=== PATIENT | female | born 1990 | race Caucasian/White ===

== ENCOUNTER 2019-12-14 09:02 | Emergency (ER) | payer OTHER ==
[~2019-12-14] VITALS: Ht 152.4 cm; Wt 66.2 kg
[2019-12-14] MEDS ORDERED: DIALYVITE 800-1 EACH PO (09:18)
[2019-12-14] MEDS ORDERED: PRENATABS RX T1 EACH PO (09:18)
[2019-12-14] MEDS ORDERED: VITAMIN D32000 UNI2 PO (09:19)
== END 2019-12-14 14:33 | disposition home or self-care (01) ==
LOC: ER 09:02
DX: O20.0 Threatened abortion (principal)

== ENCOUNTER → 2020-01-15 | Outpatient (CLI) | payer OTHER ==
[~2020-01-15] MED LIST: DIALYVITE 800-1 EACH PO; PRENATABS RX T1 EACH PO; VITAMIN D32000 UNI2 PO
== END | disposition home or self-care (01) ==
LOC: PRENATAL 09:00
DX: O99.89 Other specified diseases and conditions complicating pregnancy, childbirth and the puerperium (principal); O35.3XX1 Maternal care for (suspected) damage to fetus from viral disease in mother, fetus 1; O28.1 Abnormal biochemical finding on antenatal screening of mother

== ENCOUNTER → 2020-03-18 | Outpatient (CLI) | payer OTHER | END | disposition home or self-care (01) | LOC: PRENATAL 08:29 | PROVIDERS: ATTEND Obstetrics & Gynecology | DX: O26.843 Uterine size-date discrepancy, third trimester (principal); O28.1 Abnormal biochemical finding on antenatal screening of mother; O99.89 Other specified diseases and conditions complicating pregnancy, childbirth and the puerperium ==

== ENCOUNTER → 2020-04-29 | Outpatient (CLI) | payer OTHER | END | disposition home or self-care (01) | LOC: PRENATAL 08:00 | PROVIDERS: ATTEND Obstetrics & Gynecology | DX: O26.843 Uterine size-date discrepancy, third trimester (principal); O28.1 Abnormal biochemical finding on antenatal screening of mother; O99.89 Other specified diseases and conditions complicating pregnancy, childbirth and the puerperium; O35.0XX1 Maternal care for (suspected) central nervous system malformation in fetus, fetus 1 ==

== ENCOUNTER 2020-05-05 10:15 | Inpatient (IN) | payer OTHER ==
[~2020-05-05] VITALS: Ht 154.9 cm; Wt 73.9 kg
== END 2020-06-03 14:10 | disposition home or self-care (01) | DRG 788 ==
LOC: O/R 05-31 03:35 → OB/GYN 05-31 03:35 → LDR 05-31 03:35 → O/R 05-31 13:37 → OB/GYN 05-31 16:44 → LDR 06-02 10:15 → OB/GYN 06-03 14:10
PROVIDERS: ADMIT Obstetrics & Gynecology; ATTEND Obstetrics & Gynecology
PROC: 3E0P7VZ Introduction of Hormone into Female Reproductive, Via Natural or Artificial Opening (ICD-10-PCS; 2020-05-31)
PROC: 4A1HXCZ Monitoring of Products of Conception, Cardiac Rate, External Approach (ICD-10-PCS; 2020-05-31)
PROC: 10D00Z1 Extraction of Products of Conception, Low, Open Approach (ICD-10-PCS; principal; 2020-05-31 13:15)
DX: O65.8 Obstructed labor due to other maternal pelvic abnormalities (principal); Z20.828 Contact with and (suspected) exposure to other viral communicable diseases; Z3A.39 39 weeks gestation of pregnancy; Z37.0 Single live birth

== ENCOUNTER 2020-05-23 00:04 | Outpatient (CLI) | payer OTHER | END 2020-05-23 15:00 | disposition home or self-care (01) | LOC: OBS/DEL 00:04 | PROVIDERS: ATTEND Obstetrics & Gynecology | DX: O98.813 Other maternal infectious and parasitic diseases complicating pregnancy, third trimester (principal); B37.89 Other sites of candidiasis ==

== ENCOUNTER 2021-07-27 14:07 | Emergency (ER) | payer OTHER ==
[~2021-07-27] VITALS: Ht 154.9 cm; Wt 70.3 kg
[2021-07-27] MEDS ORDERED: SINGULAIR 10MG10 MG PO (14:31)
== END 2021-07-27 15:42 | disposition home or self-care (01) ==
LOC: ER 14:07
DX: K29.60 Other gastritis without bleeding (principal)

== ENCOUNTER 2023-07-06 17:23 | Emergency (ER) | payer OTHER ==
[~2023-07-06] VITALS: Ht 162.6 cm; Wt 68.0 kg
[~2023-07-06 17:23] MED LIST changes: +SINGULAIR 10MG10 MG PO
== END 2023-07-06 19:50 | disposition home or self-care (01) ==
LOC: ER 17:24
DX: M54.2 Cervicalgia (principal)

== ENCOUNTER → 2025-03-21 | Emergency (ER) | payer OTHER | END | disposition left against medical advice (07) | LOC: ER 10:54 | DX: Z53.21 Procedure and treatment not carried out due to patient leaving prior to being seen by health care provider (principal) ==